=== PATIENT | female | born 1940 | race Caucasian/White ===

== ENCOUNTER → 2023-09-12 10:54 | Outpatient (REF) | payer MEDICARE, OTHER, SELFPAY | LOC: RCS 10:54 | PROVIDERS: ATTENDING PHYSICIAN Internal Medicine Cardiovascular Disease; FAMILY PHYSICIAN Family Medicine | DX: I34.0 Nonrheumatic mitral (valve) insufficiency (principal) | CPT/HCPCS: 93306 ==

== ENCOUNTER → 2023-10-10 07:05 | Outpatient (REF) | payer MEDICARE, OTHER, SELFPAY | LOC: DHCBC/DCA 07:05 | PROVIDERS: ATTENDING PHYSICIAN Internal Medicine Cardiovascular Disease; FAMILY PHYSICIAN Family Medicine | DX: R06.02 Shortness of breath (principal) | CPT/HCPCS: 78452; 93017; A9500; J2785 ==

== ENCOUNTER → 2023-12-23 14:38 | Outpatient (REF) | payer MEDICARE, OTHER, SELFPAY | LOC: HWRAD 14:38 | PROVIDERS: ATTENDING PHYSICIAN Family Medicine | DX: M85.80 Other specified disorders of bone density and structure, unspecified site (principal); N95.1 Menopausal and female climacteric states; R91.1 Solitary pulmonary nodule; M81.0 Age-related osteoporosis without current pathological fracture | CPT/HCPCS: 71250; 77080 ==

== ENCOUNTER 2024-11-27 11:16 | Emergency (ER) | payer MEDICARE, OTHER, SELFPAY ==
[2024-11-27 11:19] VITALS: BP 168/85
[2024-11-27 12:30] VITALS: BP 138/103
--- NOTE | 2024-11-27 14:22 | ED.GENMED ---
History of Present Illness
General
Chief Complaint: Fall
Time Seen by Provider: 11/27/24 13:32
History of Present Illness
History of Present Illness:
83-year-old female presents to the emergency department for evaluation after a fall down a set of stairs. She tripped and fell forward on the full flight of stairs. She reports predominantly left hip and right foot pain but she did strike her head
on the ground. She is on Eliquis. Denies neck pain or chest pain at this time.
Review of Systems
Review of Systems
Allergies reviewed?: Yes
All Other Systems: ROS reviewed and negative except as documented in HPI and ROS
Phy Exam
Physical Exam
Physical Exam:
GEN: Well appearing, NAD, WDWN
HEENT: Oral mucosa moist, no scleral icterus. Mild ecchymosis to the left forehead but no other signs of cranial trauma. No midline cervical spine tenderness
Cardiac: Regular rate
Lung: No respiratory distress, no tachypnea
MSK: Large hematoma to the left proximal gluteal muscle, left hip range of motion is normal, no shortening or external rotation of lower extremities. Diffuse soft tissue swelling of the right foot
Skin: Good color, no pallor or jaundice, no rashes
Neuro: AO x3, moves all extremities freely
Psych: Calm, cooperative
Course
Orders/Labs/Results
Orders:
Orders
11/27/24 11:23
CT Cervical Spine W/o Iv Contr Urgent
Comment:
Reason For Exam: fall down the steps on eliquis
CT Head W/o Iv Contrast Urgent
Comment:
Reason For Exam: fall down the steps on eliquis
11/27/24 11:24
Foot, Right 3 View [CR Foot - Right Min 3 Views] Urgent
Comment:
Reason For Exam: fall down the steps
Hip, Left 2-3 Views [CR Hip - LT w/wo Pel 2-3 Vw*] Urgent
Comment:
Reason For Exam: fall down the steps
Include a pelvis x-ray?: Yes
11/27/24 13:37
Ortho Boot Right- Treatment ONCE
Short or tall?: Short
Vital Signs
Initial and Last Documented VS:
Initial Vital Signs
Temp Pulse Resp BP Pulse Ox
98.8 F 71 17 168/85 99
11/27/24 11:19 11/27/24 11:19 11/27/24 11:19 11/27/24 11:19 11/27/24 11:19
Last Documented Vital Signs
Temp Pulse Resp BP Pulse Ox
98.8 F 71 17 138/103 96
11/27/24 11:19 11/27/24 11:19 11/27/24 11:19 11/27/24 12:30 11/27/24 14:24
MDM/Problems Addressed
MDM/Problems Addressed:
Patient does have a large hematoma to the left gluteal region and is on Eliquis. This appears stable and did not expand while in the ED. Recommend ice and direct compression. There is right foot swelling identified to be due to a third metatarsal
fracture, she was given an orthopedic boot and was able to ambulate under her own power without difficulty, recommend outpatient Ortho follow-up. CT imaging of the head and cervical spine are reassuring
*Pulse Oximetry
SaO2: 96
Oxygen Mode of Delivery: Room air
Patient hypoxic: no
*Critical Care Note
Total Time (30-74mins, 75-104mins- exclusive of procedures): Not Applicable
ED Attending Note
-
Portions of this chart may have been created with voice recognition software.� Occasional wrong word or��sound alike� substitutions may have occurred due to the inherent limitations of voice recognition software.
Discharge Plan
Departure
Patient Disposition: Home (Routine Discharge)
Date of Disposition: 11/27/24
Time of Disposition: 14:22
Patient with high blood pressure during this ER visit?: No
Discharge Problem:
Fracture of third metatarsal bone of right foot, Hematoma of left buttock
Instructions: Foot Fracture ED, Hematoma
Prescriptions:
No Action
levothyroxine [Synthroid] 75 mcg Tablet
75 mcg PO 1XD
hydrochlorothiazide 25 mg Tablet
25 mg PO DAILY
metoprolol succinate 25 mg Tablet Extended Release 24 Hr
25 mg PO DAILY
Calcitab 600 W/Vitamin D 600 mg calcium- 200 unit Tablet
See Rx Instructions .ROUTE .COMPLEX
Rx Instructions:
600mg
rosuvastatin 5 mg Tablet
5 mg PO DAILY
Eliquis 5 mg Tablet
5 mg PO BID
guaifenesin [Mucinex] 600 mg Tablet Extended Release 12hr
600 mg PO BID
Referrals:
Oxana Cano DO [Family Provider, Family Practice]
Karel Hernandez MD [Active, Orthopedics]
Interventions
Interventions:
*Risk Screen - Suicide Last Done: 11/27/24 11:22
*General Assessment Last Done: 11/27/24 11:22
*Neglect/Abuse Screening Last Done: 11/27/24 11:22
*ED COVID-19 Vaccine History Last Done: 11/27/24 11:22
*Nursing Disposition Last Done: 11/27/24 14:46
ED-Musculoskeletal Assessment Last Done: 11/27/24 12:41
ED- Neurological Assessment Last Done: 11/27/24 12:41
ED-Skin Assessment Last Done: 11/27/24 12:41
Discharge Date and Time
Discharge Date/Time: 11/27/24 14:46
Print Language: SYRIAC
== END 2024-11-27 14:46 | disposition home or self-care (01) ==
LOC: EMR 11:16
PROVIDERS: EMERGENCY PHYSICIAN Emergency Medicine; FAMILY PHYSICIAN Family Medicine
DX: S92.331A Displaced fracture of third metatarsal bone, right foot, initial encounter for closed fracture (principal); S30.0XXA Contusion of lower back and pelvis, initial encounter; W10.9XXA Fall (on) (from) unspecified stairs and steps, initial encounter; Z79.01 Long term (current) use of anticoagulants
CPT/HCPCS: 99284; 70450; 72125; 73502; 73630